=== PATIENT | male | born 1995 | race Caucasian/White ===

== ENCOUNTER 2018-03-15 03:30 | Emergency (ER) | payer OTHER ==
[~2018-03-15] VITALS: Ht 167.6 cm; Wt 68.0 kg
[2018-03-15] MEDS ORDERED: RITALIN5 MG PO (03:43)
== END 2018-03-15 05:45 | disposition home or self-care (01) ==
LOC: ED 03:30
DX: R10.9 Unspecified abdominal pain (principal); Z79.899 Other long term (current) drug therapy
CPT/HCPCS: 74177; 80053; 81001; 83690; 85025; 96374; 96375; 99284; J0131; J1170; J2405; Q9967

== ENCOUNTER 2020-04-09 09:59 | Emergency (ER) | payer BC ==
[~2020-04-09] VITALS: Ht 167.6 cm; Wt 68.0 kg
[~2020-04-09 09:59] MED LIST: RITALIN5 MG PO
[2020-04-09] MEDS ORDERED: ESCITALOPRAM OXA5 MG PO (10:09)
== END 2020-04-09 11:21 | disposition home or self-care (01) ==
LOC: ED 09:59
DX: S61.210A Laceration without foreign body of right index finger without damage to nail, initial encounter (principal); F90.9 Attention-deficit hyperactivity disorder, unspecified type; Z79.899 Other long term (current) drug therapy; W22.8XXA Striking against or struck by other objects, initial encounter
CPT/HCPCS: 90471; 90715; 99282-25

== ENCOUNTER 2020-06-26 22:28 | Emergency (ER) | payer BC, OTHER ==
[~2020-06-26] VITALS: Ht 167.6 cm; Wt 68.0 kg
[~2020-06-26 22:28] MED LIST changes: +ESCITALOPRAM OXA5 MG PO
[2020-06-26] MEDS ORDERED: MELATONIN1 MG PO (22:54)
== END 2020-06-27 00:56 | disposition home or self-care (01) ==
LOC: ED 22:28
DX: K52.9 Noninfective gastroenteritis and colitis, unspecified (principal)
CPT/HCPCS: 80053; 85025; 96361; 96374; 96375; 99284-25; C9803; J2405; J7030; U0002